=== PATIENT | female | born 1970 | race Caucasian/White ===

== ENCOUNTER 2016-10-31 18:49 | Emergency (ER) | payer OTHER ==
[2016-10-31] MEDS ORDERED: KETOROLAC 60 MG/2 ML VIAL IM ONE (20:27)
== END 2016-10-31 20:45 | disposition home or self-care (01) ==
LOC: ER 18:49
DX: S92.514A Nondisplaced fracture of proximal phalanx of right lesser toe(s), initial encounter for closed fracture (principal); S90.31XA Contusion of right foot, initial encounter; S90.121A Contusion of right lesser toe(s) without damage to nail, initial encounter; W22.8XXA Striking against or struck by other objects, initial encounter; Y92.019 Unspecified place in single-family (private) house as the place of occurrence of the external cause; F17.210 Nicotine dependence, cigarettes, uncomplicated
CPT/HCPCS: 96372